=== PATIENT | male | born 1980 | race Caucasian/White ===

== ENCOUNTER 2025-08-01 05:07 | Emergency (ER) | payer BC ==
[2025-08-01 05:17] VITALS: BP 118/79; PULSE 108; RESP 16; TEMP 97; BMI 26.6
[2025-08-01] MEDS ORDERED: CEPHALEXIN MONOHYDRATE 500 MG CAPSULE (UD) ONE (05:40)
[2025-08-01] MEDS ORDERED: ACETAMINOPHEN 325 MG TABLET (FP) ONE (05:40)
[2025-08-01] MEDS ORDERED: DIPHTH,PERTUSS(ACELL),TET 0.5 ML DISP.SYRIN IM ONE (05:41)
[2025-08-01] MEDS: DIPHTH,PERTUSS(ACELL),TET 0.5 ML DISP.SYRIN IM ONE (05:53)
[2025-08-01] MEDS: ACETAMINOPHEN 325 MG TABLET (FP) PO ONE (05:57)
[2025-08-01] MEDS: CEPHALEXIN MONOHYDRATE 500 MG CAPSULE (UD) PO ONE (05:58)
[2025-08-01] MEDS: CEPHALEXIN 250 MG/5 ML ORAL SUSPENSION PO ONE (05:58)
[2025-08-01] MEDS ORDERED: SODIUM CHLORIDE 0.9% 500 ML INFUS.BAG IV ONE (06:30)
== END 2025-08-01 06:31 | disposition home or self-care (01) ==
LOC: JER 05:07
PROC: 0HQFXZZ Repair Right Hand Skin, External Approach (ICD-10-PCS; principal; 2025-08-01)
PROC: 3E0234Z Introduction of Serum, Toxoid and Vaccine into Muscle, Percutaneous Approach (ICD-10-PCS; 2025-08-01)
DX: S61.011A Laceration without foreign body of right thumb without damage to nail, initial encounter (principal); Z23 Encounter for immunization; W26.8XXA Contact with other sharp object(s), not elsewhere classified, initial encounter; Y92.009 Unspecified place in unspecified non-institutional (private) residence as the place of occurrence of the external cause
CPT/HCPCS: 90715; 99284-25